=== PATIENT | female | born 1960 | race Caucasian/White ===

== ENCOUNTER 2017-02-11 11:23 | Outpatient (CLI) | payer BC ==
--- NOTE | 2017-02-11 13:36 | RAD ---
4 VIEWS OF RIGHT KNEE: Date: 02/11/17 COMPARISON: None. HISTORY: Medial right knee pain and swelling. Patient fell last year. FINDINGS: Four views of the right knee show moderate tricompartmental joint space narrowing and osteophyte for mation, greatest in the medial femorotibial compartment. This is consistent with osteoarthritis. No knee effusion is seen. IMPRESSION: Moderate right knee osteoarthritis. POS: [facility]
--- NOTE | 2017-02-11 13:37 | RAD ---
UPRIGHT VIEW OF BOTH KNEES: Date: 02/11/17 COMPARISON: None. HISTORY: Right medial knee pain and swelling. FINDINGS: Standing anterior views of both knees shows no evidence of acute fracture or dislocation. There is j oint space narrowing and osteophyte formation in the bilateral medial femorotibial compartments, rig ht greater than left. This is consistent with bilateral moderate knee osteoarthritis. IMPRESSION: Moderate bilateral knee osteoarthritis. POS: [facility]
== END 2017-02-11 11:24 | disposition home or self-care (01) ==
LOC: NAV RAD 11:23
PROVIDERS: ATTEND Family Medicine
DX: S83.411D Sprain of medial collateral ligament of right knee, subsequent encounter (principal); M17.0 Bilateral primary osteoarthritis of knee
CPT/HCPCS: 73565

== ENCOUNTER 2018-07-02 10:30 | Inpatient (IN) | payer BC ==
--- NOTE | 2018-07-02 11:06 | RAD ---
CHEST 2 VIEWS: HISTORY: Cough. Fever. COMPARISON: None. FINDINGS: Opacification of the right lower lobe and middle lobe may represent pneumonia or aspiration. Continu ed surveillance is recommended. The pulmonary vessels do appear to be prominent. No pneumothorax or significant pleural fluid. Normal cardiac silhouette. IMPRESSION: Opacification of the right lower lobe and middle lobe. Continued surveillance to ensure resolution i s recommended. POS: [facility]
[2018-07-02] MEDS ORDERED: Clindamycin/D5W 900 mg/50 ml Premix Bag ONE (11:39)
[2018-07-02 11:48] LABS: #Basophils 0.1 thou/uL (0.0-0.2); #Eosinphils 0.1 thou/uL (0.0-0.7); #Lymphocytes 0.6 thou/uL (1.20-3.40); #Monocytes 0.9 thou/uL (0.11-0.59); #Neutrophils 11.5 thou/uL (1.40-6.50); %Eosinophils 1.1 % (0.0-10.0); %Lymphocytes 4.8 % (21.0-51.0); %Monocytes 6.8 % (0.0-10.0); %Neutrophils 86.4 % (42.0-75.0); Hemoglobin 13.5 g/dL (12.0-16.0); Mean Corpuscular HGB CONC 31.7 g/dL (32.0-36.0); Mean Corpuscular Hemoglobin 27.8 pg (27.0-31.0); Mean Corpuscular Volume 87.4 fL (78.0-98.0); Mean Platelet Volume 8.6 fL (7.4-10.4); Platelet Count 168 thou/uL (130-400); RBC Distribution Width 12.6 % (11.5-14.5); Red Blood Cell (RBC) Count 4.86 mill/uL (4.20-5.40); White Blood Cell (WBC) Count 13.3 thou/uL (4.8-10.8)
[2018-07-02 11:59] LABS: ALT (SGPT) 18 U/L (8-55); AST (SGOT) 16 U/L (5-34); Alkaline Phosphatase 102 U/L (40-150); Anion Gap 14 mmol/L (10-20); BUN (Urea Nitrogen) 16 mg/dL (9.8-20.1); Bilirubin, Total 0.6 mg/dL (0.2-1.2); Calc. Creatinine Clearance 0 mL/min (70-130); Calcium 9.8 mg/dL (7.8-10.44); Carbon Dioxide 28 mmol/L (22-29); Chloride 103 mmol/L (98-107); Estimated GFR-MDRD 76; Globulin 2.9 g/dL (2.4-3.5); Glucose 105 mg/dL (70-105); Protein, Total 6.9 g/dL (6.0-8.3); Sodium 141 mmol/L (136-145)
[2018-07-02] MEDS ORDERED: Guaifenesin DM 100-10/5 ML UDCUP PO PRN (13:14)
[2018-07-02] MEDS ORDERED: Zolpidem Tartrate 5 MG TAB PO PRN (13:14)
[2018-07-02] MEDS ORDERED: Ondansetron HCl/PF 4 MG/2 ML Vial IVP PRN (13:14)
[2018-07-02] MEDS ORDERED: Acetaminophen 325 MG TAB PO PRN (13:14)
[2018-07-02 13:33] VITALS: BMI 44.6
--- NOTE | 2018-07-02 15:03 | HP ---
DATE OF SERVICE: 07/02/2018 CHIEF COMPLAINT: Shortness of breath. HISTORY OF PRESENT ILLNESS: The patient is a 58-year-old female with a past medical history of GERD, and osteoarthritis who presented to the ER with shortness of breath. At approximately 6:30 this morning she woke up with what she described as reflux attack and had one episode of vomiting that she thought she aspirated on. A few hours later this morning, she developed a temperature of 103 as well as chills, cough, and shortness of breath. She tried taking 3 ibuprofens to bring her fever down, but when she started to feeling worse, she presented to the ER. On presentation, she was tachycardic with a pulse of 116, she is satting 93% on room air and temperature following ibuprofen was 99.5. The patient had a chest x-ray which demonstrated an opacity in the right lower and middle lobe. The patient was given a liter of IV fluids and clindamycin and is feeling a little bit better at this time. PAST MEDICAL HISTORY: 1. Osteoarthritis. 2. GERD. PAST SURGICAL HISTORY: Bilateral tubal ligation with a bladder repair in 1979. MEDICATIONS: 1. Prilosec 20 mg p.o. daily. 2. Ibuprofen 600 mg p.o. q.6 hours p.r.n. pain. ALLERGIES: No known drug allergies. FAMILY HISTORY: 1. Dad, heart disease. 2. Mom, breast cancer. SOCIAL HISTORY: Patient quit smoking 10 years ago and drinks alcohol occasionally. REVIEW OF SYSTEMS: General: Positive for fever and chills. Eyes: Negative for vision changes and eye pain. HEENT: Positive for burning in her throat. Negative for rhinorrhea and congestion. Cardiovascular: Negative for chest pain, palpitations, orthopnea and PND. Respiratory: Positive for cough and shortness of breath, but she denies wheezing. Abdomen: Positive for indigestion and reflux as well as nausea and vomiting, but no diarrhea or constipation. Genitourinary: Negative for dysuria or polyuria. Musculoskeletal: Negative for muscle pain or swelling. Skin: Negative for rashes or jaundice. Psychiatric: Negative for anxiety or depression. PHYSICAL EXAMINATION: VITAL SIGNS: Pulse 97, O2 sat 95% on room air, blood pressure 142/69, respiration rate 20. GENERAL: The patient is awake, alert, and oriented and in no acute distress. HEENT: Oropharynx and nasopharynx without erythema or exudates. NECK: Supple without lymphadenopathy, thyromegaly or bruits. LUNGS: Right side with crackles, but no wheezing. CARDIOVASCULAR: Regular rate and rhythm without murmurs, gallops, or rubs. ABDOMEN: Soft, nontender, nondistended with bowel sounds present. EXTREMITIES: There is no clubbing, cyanosis or edema. MUSCULOSKELETAL: Patient has full range of motion of all extremities. No erythema. SKIN: No rashes, lesions or jaundice is noted. PSYCHIATRIC: The patient displays an appropriate mood and affect. LABORATORY AND X-RAY FINDINGS: 1. CBC: WBC is 13.3, hemoglobin 13.5, hematocrit 42.5, platelet count 168. 2. CMP: Sodium 141, potassium 4.0, chloride 103, bicarbonate 14, BUN 16, creatinine 0.77, glucose 105, calcium 9.8, total bilirubin 0.6, AST 16, ALT 18, alkaline phosphatase 102, total protein 6.9, albumin 4.0. 3. Lactic acid 2.0. 4. Chest x-ray showed opacities in the right middle and lower lobe. ASSESSMENT AND PLAN: The patient is a 58-year-old female who presented with aspiration pneumonia. 1. Sepsis secondary to aspiration pneumonia: The patient will continue on IV clindamycin and has already received a liter of fluids. We will let her drink fluids and saline lock her IV at this point. Blood cultures have been drawn and are pending. Repeat chest XR tomorrow and check cbc and bmp. 2. Gastroesophageal reflux. We will change to Protonix. She will have Zofran as needed for nausea. 3. Deep venous thrombosis prophylaxis with Lovenox. 4. Osteoarthritis. We will hold her NSAIDs at this time as they might be irritating her stomach. MTDD
[2018-07-02] MEDS: Clindamycin/D5W 600 MG in Premix Bag 1 BAG IVPB SCH (19:30)
[2018-07-03] MEDS: Clindamycin/D5W 600 MG in Premix Bag 1 BAG IVPB SCH ×2 (00:43→05:46)
[2018-07-03 06:08] LABS: #Basophils 0.1 thou/uL (0.0-0.2); #Eosinphils 0.3 thou/uL (0.0-0.7); #Lymphocytes 1.1 thou/uL (1.20-3.40); #Monocytes 0.7 thou/uL (0.11-0.59); #Neutrophils 8.5 thou/uL (1.40-6.50); %Eosinophils 2.5 % (0.0-10.0); %Lymphocytes 10.6 % (21.0-51.0); %Monocytes 6.9 % (0.0-10.0); Hemoglobin 11.6 g/dL (12.0-16.0); Mean Corpuscular HGB CONC 30.4 g/dL (32.0-36.0); Mean Corpuscular Hemoglobin 27.2 pg (27.0-31.0); Mean Corpuscular Volume 89.4 fL (78.0-98.0); Mean Platelet Volume 8.7 fL (7.4-10.4); Platelet Count 151 thou/uL (130-400); RBC Distribution Width 13.1 % (11.5-14.5); Red Blood Cell (RBC) Count 4.26 mill/uL (4.20-5.40); White Blood Cell (WBC) Count 10.7 thou/uL (4.8-10.8)
[2018-07-03 06:14] LABS: Anion Gap 13 mmol/L (10-20); BUN (Urea Nitrogen) 12 mg/dL (9.8-20.1); Calc. Creatinine Clearance 169 mL/min (70-130); Calcium 9.7 mg/dL (7.8-10.44); Carbon Dioxide 26 mmol/L (22-29); Chloride 105 mmol/L (98-107); Estimated GFR-MDRD Greater than 90; Glucose 96 mg/dL (70-105); Sodium 140 mmol/L (136-145)
[2018-07-03 07:34] VITALS: BP 147/70; TEMP 98.1
--- NOTE | 2018-07-03 08:01 | RAD ---
TWO VIEW OF THE CHEST: COMPARISON: 07/02/18. HISTORY: Aspiration pneumonia. FINDINGS: Two views of the chest show a normal-size cardiomediastinal silhouette. Airspace opacity is again se en in the right inferior thorax. This appears to be in the right middle lobe on the lateral radiogra ph. This has slightly improved compared to the prior examination. IMPRESSION: Improving right middle lobe pneumonia. POS: [facility]
[2018-07-03] MEDS ORDERED: Enoxaparin Sodium 40 MG/0.4 ML SYRINGE SC SCH (09:00)
[2018-07-03] MEDS ORDERED: Clindamycin 150 MG CAP PO SCH ×2 (10:00→14:00)
--- NOTE | 2018-07-03 12:58 | DIS ---
DATE OF ADMISSION: 07/02/2018 DATE OF DISCHARGE: 07/03/2018 DISCHARGE DIAGNOSES: 1. Sepsis, resolved. 2. Aspiration pneumonia. 3. Gastroesophageal reflux disease. DISCHARGE MEDICATIONS: 1. Clindamycin 300 mg p.o. t.i.d. x7 days. 2. Protonix 40 mg p.o. daily. HOSPITAL COURSE: The patient is a 58-year-old female, who presented to the ER with shortne ss of breath and fever following an episode of vomiting earlier in the morning where she felt like sh e aspirated. The patient was found to have pneumonia in the right middle and lower lobes and was sta rted on clindamycin. Initially, her white count was 13,000. She was tachycardic and had a temperatu re of 103. The patient was given IV fluids and clindamycin was treated. This morning, her O2 sats r emained stable on room air. She has had no fever overnight and she feels like she is breathing easie r and is wanting to go home. DISPOSITION: 1. Discharge home in stable condition. 2. Diet: Ad ashlee. 3. The patient will follow up with me in the clinic within the next week. 4. Activity: As tolerated.
== END 2018-07-03 11:10 | disposition home or self-care (01) | DRG 871 ==
LOC: NAV ERS 10:30 → NAV ACUTE 13:09
PROVIDERS: ADMIT Family Medicine; ATTEND Family Medicine
DX: A41.9 Sepsis, unspecified organism (principal); J69.0 Pneumonitis due to inhalation of food and vomit; K21.9 Gastro-esophageal reflux disease without esophagitis; M19.90 Unspecified osteoarthritis, unspecified site; Z87.891 Personal history of nicotine dependence
CPT/HCPCS: 71046; 80048; 80053; 83605; 85025; 87040; 96365; J1650; J3490

== ENCOUNTER 2018-08-06 09:12 | Emergency (ER) | payer BC ==
--- NOTE | 2018-08-06 11:04 | RAD ---
CHEST TWO VIEWS: 08/06/2018 PROVIDED CLINICAL HISTORY: Cough. COMPARISON: 07/03/2018 FINDINGS: The cardiac and mediastinal silhouette are within normal limits. No focal consolidation, pleural flu id, or pneumothorax apparent. IMPRESSION: No evidence for an acute cardiopulmonary process. POS: [facility]
== END 2018-08-06 10:22 | disposition home or self-care (01) ==
LOC: NAV ERS 09:12
DX: J06.9 Acute upper respiratory infection, unspecified (principal); K21.9 Gastro-esophageal reflux disease without esophagitis; Z87.891 Personal history of nicotine dependence; Z79.899 Other long term (current) drug therapy
CPT/HCPCS: 71046